=== PATIENT | male | born 1990 | race Asian ===

== ENCOUNTER → 2018-09-19 | Outpatient (CLI) | payer OTHER | LOC: FIMAGING 14:40 | PROVIDERS: ATTEND Internal Medicine | DX: M62.838 Other muscle spasm (principal); S22.050A Wedge compression fracture of T5-T6 vertebra, initial encounter for closed fracture; M41.84 Other forms of scoliosis, thoracic region ==

== ENCOUNTER → 2018-09-21 | Outpatient (CLI) | payer OTHER | LOC: FIMAGING 19:14 | PROVIDERS: ATTEND Internal Medicine | DX: G89.11 Acute pain due to trauma (principal); S22.000A Wedge compression fracture of unspecified thoracic vertebra, initial encounter for closed fracture; M41.84 Other forms of scoliosis, thoracic region ==